=== PATIENT | male | born 1980 | race Caucasian/White ===

== ENCOUNTER 2019-02-27 13:05 | Emergency (ER) | payer SELFPAY ==
[~2019-02-27] VITALS: Ht 180.3 cm; Wt 92.1 kg
[2019-02-27 13:14] VITALS: Ht 180.3 cm; Wt 92.1 kg
[2019-02-27 14:15] LABS: BASOPHIL % 0.4 % (0-2); PLATELET COUNT 270 x10^3mcL (130-400)
[2019-02-27 14:17] LABS: RED CELL DISTRIBUTION WIDTH 15.3 % (11.5-14.5)
[2019-02-27 14:25] LABS: CALCIUM 8.6 mg/dL (8.5-10.1); CARBON DIOXIDE 24.3 mmol/L (21-32); CHLORIDE SERUM 103 mmol/L (98-107); CREATININE SERUM 1.1 mg/dL (0.7-1.3); GFR1 > 60 mL/min; GLUCOSE SERUM 101 mg/dL (74-106); POTASSIUM SERUM 3.7 mmol/L (3.5-5.1); SODIUM SERUM 139 mmol/L (136-145)
[2019-02-27 15:30] VITALS: BP 136/62
== END 2019-02-27 17:10 | disposition home or self-care (01) ==
LOC: ED 13:05
PROVIDERS: Emergency Medicine
DX: J40 Bronchitis, not specified as acute or chronic (principal); Z88.8 Allergy status to other drugs, medicaments and biological substances
CPT/HCPCS: 36415; G0480; Q0092